=== PATIENT | female | born 1955 | race Caucasian/White ===

== ENCOUNTER 2017-01-29 12:18 | Day surgery (SDC) | payer OTHER ==
[~2017-01-29] VITALS: Ht 152.4 cm; Wt 61.4 kg
[2017-01-29] MEDS ORDERED: HYD25 PO (13:03)
[2017-01-29 15:28] VITALS: BP 136/77; PULSE 58; RESP 18
[2017-01-29] MEDS ORDERED: LIDOCAINE 100 MG SYRINGE ONE (15:46)
[2017-01-29] MEDS ORDERED: PROPOFOL 40 ML ONE (15:46)
--- NOTE | 2017-01-29 16:04 | OPPN ---
Date/Time of Note Date/Time of Note DATE: 01/29/17 TIME: 16:02 Proc Note GI Free Text/Dictation Procedure Date: 01/29/2017 Preoperative Diagnosis: Colorectal cancer screening Postoperative Diagnosis: * Diverticulosis left side of the colon, mild * Moderate-sized internal hemorrhoids * Otherwise normal colonoscopy to cecum Plan: * High-fiber diet * Annual Hemoccult stool testing * Screening colonoscopy in 10 years Procedure Performed: Colonoscopy Surgeon: Anny Wheat MD Flight Physician: None Second Top Former: None Anesthesia/Sedation MAC/ Tourniquet Time: NA Estimated Blood Loss: None Transfusion Required: No Specimens: None Grafts/Implants: None Tubes/Drains: NA Complications: None Pt. Condition Post Procedure: Stable Disposition: Home After informed consent, with the patient/relatives understanding the procedure, its indications and potential risks and complications, including but not limited to: Allergic reaction, bleeding, perforation, infection, and after all pertinent questions were answered to the patient's satisfaction, the patient/ relatives signed the witnessed informed consent. Following this, premedication was administered slowly IV push under careful cardiovascular and respiratory monitoring with pulse OXIMETRY, automatic blood pressure, and groundwater monitoring technician. Once the sedative effect was achieved, the patient was placed in the left lateral decubitus position, digital rectal examination was performed. A colonoscope was then introduced and advanced under visual control throughout all segments of the colon including: [the rectum, sigmoid, descending colon, splenic flexure, transverse colon, hepatic flexure, ascending colon and finally reaching the cecum which was clearly identified by transillumination, finger indentation and the ileocecal valve.] Careful examination of the mucosa of the lower gastrointestinal tract both on insertion as well as withdrawal of the instrument disclosed the following findings: Preparation quality: [Adequate], Rectal Examination: The anorectal area was visualized examined and digital rectal examination performed with the following findings: [No evidence of perirectal disease, no masses.] Colonic mucosa: The mucosa of all segments of the colon was carefully examined and showed the following findings: There is mild diverticulosis of several colon. Otherwise the examined mucosa appears within normal limits. There is no evidence of inflammatory changes, polyps or other neoplasms, vascular malformation, or any other abnormality. Moderate size internal hemorrhoids are present. The instrument was then withdrawn, the patient tolerated the procedure well and was transferred out of the Endoscopy Suite awake and in good condition to continue recovery under observation. Procedure date: Jan 29, 2017 ANNY WHEAT MD Jan 29, 2017 16:04
[2017-01-29 16:30] VITALS: BP 122/73; RESP 18
== END 2017-01-29 17:02 | disposition home or self-care (01) ==
LOC: GIL 12:18
PROVIDERS: ATTEND Internal Medicine Gastroenterology
DX: Z12.11 Encounter for screening for malignant neoplasm of colon (principal); K57.30 Diverticulosis of large intestine without perforation or abscess without bleeding; K64.8 Other hemorrhoids; I10 Essential (primary) hypertension
CPT/HCPCS: 45378; J2001; Z7610

== ENCOUNTER → 2017-02-06 | Outpatient (CLI) | payer OTHER ==
[~2017-02-06] MED LIST: HYDR25TA6 PO
--- NOTE | 2017-02-06 17:45 | RADRPT ---
PROCEDURE: Right knee radiographs. CLINICAL INDICATION: Right knee pain. TECHNIQUE: Three views. Weight bearing. Frontal, lateral, and patellar view. COMPARISON: No prior studies are available for comparison. FINDINGS: There is no fracture or dislocation. The soft tissues are normal. There is diffuse osteopenia. There are degenerative changes with medial joint compartment narrowing and subarticular sclerosis. Small osteophytes are noted arising from all 3 joint compartment margins. There is no lytic or blastic lesion. There is no radiopaque foreign body. IMPRESSION: 1. Diffuse osteopenia. 2. Moderate degenerative changes predominately involving the medial joint compartment. RPTAT: QQ .Anup Griggs MD, MD Date Time Electronically viewed and signed by .Anup Griggs MD, MD on 02/06/2017 17:45 .R/
--- NOTE | 2017-02-27 21:11 | HKNOTE ---
DATE OF SERVICE: 02/06/2017 MAIN COMPLAINT: Pain in the right knee. HISTORY OF MAIN COMPLAINT: The patient is a 62-year-old female, who is referred to me by Dr. Juancarlos Chan. She complains of pain in her right knee, which has been present for about 8 months or more. There is no history of injury to the knee. She was given a cortisone injection into the knee 3 months ago and this helped her a great deal. She is hoping to get a repeat injection. PAIN COMPLAINTS: The pain in her right knee is described as being moderate and is aggravated especially by going down stairs. She can walk up to a mile without stopping. She does not use a walking aid. She takes ibuprofen for the pain and it seems to help somewhat. Icing also helps. The knee does not swell, although it used to swell. The knee also previously locked, but is no longer locking in the past 2 months. The knee does not feel unstable. There is no numbness or tingling in her legs. She is not limping. She does not have a shoe lift. She can clip her toenails and tie her shoelaces. PAST ORTHOPEDIC HISTORY: Previous orthopedic operations, none. Prior cortisone intake 1 cortisone injection as noted above. ALCOHOL INTAKE: None. OTHER JOINT PROBLEMS: None. PRIOR INJURIES TO HIPS AND KNEES: None. WORK STATUS: The patient is a visiting housekeeper. PAST MEDICAL HISTORY: Hypertension. PAST SURGICAL HISTORY: Negative. ALLERGIES: NONE. MEDICATIONS: 1. Ibuprofen 600 mg as needed. 2. Hydrochlorothiazide 25 mg p.o. daily. FAMILY HISTORY: Father at 58, unstated cause. Mother age 84, alive and well. SYSTEMS REVIEW: Hypertension otherwise negative. HABITS: Patient not smoke or drink alcoholic beverages. FIELD EVIDENCE TECHNICIAN: Dr. Mara Sahni, [address] [facility], [id number], [place], [place], [address]. PHYSICAL EXAMINATION: GENERAL: Patient is a fit looking 62-year-old female. She looks older than her stated age. VITAL SIGNS: Height 5 feet, weight 139 pounds. Blood pressure 130/80, temperature 98.6. EXTREMITIES: The patient walks without a walking aid. Her gait is normal. HIPS: Both hips have full range of motion without pain. KNEES: Examination of the right knee, extension is full. Flexion lacks 20 degrees (painful). 1+ effusion. Tender over the medial joint line. 2+ crepitus in the knee and 2+ crepitus under the patella. IMAGING: Plain x-rays of the right knee obtained today (3 views) at [facility] were reviewed. These show minimal narrowing of the medial joint space. DISCUSSION: The patient is a 62-year-old female with pain in the right knee of relatively increasing onset without any history of injury. There are none of the classic symptoms of an internal derangement. She has had an excellent response with previous cortisone injection. The x-rays show mild degenerative changes. DIAGNOSIS: Mild degenerative osteoarthritis of the right knee. MANAGEMENT: Under sterile conditions, given injection of 2 mL of Kenalog and 6 mL of 2 percent lidocaine into the right knee and she will be seen again as necessary for further treatment. Dear Dr. Sahni, Thank you for referring this patient who was seen in my office today complaining of pain in her right knee. She has mild arthritis and she was given a cortisone injection into the knee. She will be seen again as necessary for further treatment. Enclosed is a copy of my office notes for your records. With Warmest Regards Dictated By: Kodak Esqueda MD /[email or web address] /Document#: [id number]
== END | disposition home or self-care (01) ==
LOC: EDUNIT# 14:00 → HKI 14:10
DX: M17.11 Unilateral primary osteoarthritis, right knee (principal); I10 Essential (primary) hypertension
CPT/HCPCS: 20610; 73562; Z7500; G0463